=== PATIENT | female | born 1955 | race Caucasian/White ===

== ENCOUNTER 2022-02-22 14:49 | Inpatient (IN) | payer MEDICARE, OTHER ==
[~2022-02-22] VITALS: Ht 170.2 cm; Wt 83.1 kg
[2022-02-22] MEDS ORDERED: Doxycycline IV 100 MG in SODIUM CHLORIDE 0.9% 100 ML IV STA (15:07)
[2022-02-22 15:27] LABS: BASOPHILS # (AUTO) 0.1 (0.0-0.1); BASOPHILS % 0.9 % (0.0-1.0); EOSINOPHILS # (AUTO) 0.3 (0.0-0.4); EOSINOPHILS % 3.1 % (0.0-6.0); HEMATOCRIT 42.1 % (34.2-44.1); HEMOGLOBIN 11.4 g/dL (12.0-16.0); LYMPHOCYTES % 21.6 % (18.0-39.1); MEAN CORPUSCULAR HEMOGLOBIN 22.2 pg (28-32); MEAN CORPUSCULAR HGB CONC 27.1 g/dL (31-35); MEAN CORPUSCULAR VOLUME 82.1 fL (81-99); MONOCYTES # (AUTO) 1.1 (0.2-0.8); MONOCYTES % 11.7 % (4.4-11.3); NEUTROPHILS # (AUTO) 5.8 (2.1-6.9); NEUTROPHILS % 62.4 % (38.7-80.0); PLATELET COUNT 306 x10e3/uL (140-360); RED BLOOD COUNT 5.13 x10e6/uL (3.6-5.1); RED CELL DISTRIBUTION WIDTH 19.9 % (11.7-14.4)
[2022-02-22 15:41] LABS: ALBUMIN/GLOBULIN RATIO 0.6 (0.8-2.0); ANION GAP 16.7 mmol/L (8-16); CALCIUM 8.8 mg/dL (8.4-10.2); CREATININE, SERUM 1.53 mg/dL (0.57-1.11); POTASSIUM 5.7 mmol/L (3.5-5.1)
[2022-02-22] MEDS ORDERED: ALBUTEROL SULF 0.083% NEB SOLN 3 ML NEB NEB STA (16:28)
[2022-02-22] MEDS ORDERED: SODIUM BICARBONATE 8.4% INJ 50 ML SYR IV STA (16:28)
[2022-02-22] MEDS ORDERED: DEXTROSE 50% SYRINGE 50 ML IV STA (16:28)
[2022-02-22] MEDS ORDERED: CALCIUM GLUCONATE 10% INJ 13.95 MEQ in SODIUM CHLORIDE 0.9% 100 ML IV ONE (16:30)
[2022-02-22] MEDS ORDERED: SOD POLYSTYRENE SULFONATE SUSP 15 GM/60 ML BTL PO ONE (16:30)
[2022-02-22] MEDS ORDERED: INSULIN REGULAR, HUMAN 100 UNIT/1 ML IV ONE (16:30)
[2022-02-22] MEDS ORDERED: FUROSEMIDE INJ 10 MG/ML 4 ML VIAL IV ONE (17:00)
[2022-02-22 17:13] LABS: ANISOCYTOSIS SLIGHT; HYPOCHROMASIA MODERATE
[2022-02-22 17:14] LABS: PLATELET ESTIMATE ADEQUATE; PLATELET MORPHOLOGY COMMENT NORMAL
[2022-02-22 18:34] VITALS: BP 140/89
[2022-02-22 20:00] VITALS: BP 105/69
[2022-02-22 21:00] VITALS: BP 105/69
[2022-02-23] VITALS (8 sets, daily range): BP systolic 98–140; BP diastolic 54–90
[2022-02-23] MEDS ORDERED: DEXLANSOPRAZOLE60 MG PO (00:51)
[2022-02-23] MEDS ORDERED: METOPROLOL SUCC25 MG PO (00:51)
[2022-02-23] MEDS ORDERED: LISINOPRIL5 MG PO (00:51)
[2022-02-23] MEDS ORDERED: TIZANIDINE HCL4 MG PO (00:51)
[2022-02-23] MEDS ORDERED: ALBUTEROL2.5 MG/3 M NEB (00:51)
[2022-02-23] MEDS ORDERED: BUMETANIDE0.5 MG (00:51)
[2022-02-23 06:59] LABS: BASOPHILS # (AUTO) 0.1 (0.0-0.1); BASOPHILS % 0.7 % (0.0-1.0); EOSINOPHILS # (AUTO) 0.2 (0.0-0.4); HEMATOCRIT 40.7 % (34.2-44.1); HEMOGLOBIN 10.9 g/dL (12.0-16.0); LYMPHOCYTES # (AUTO) 1.4 (1.0-3.2); LYMPHOCYTES % 16.2 % (18.0-39.1); MEAN CORPUSCULAR HEMOGLOBIN 22.1 pg (28-32); MEAN CORPUSCULAR HGB CONC 26.8 g/dL (31-35); MEAN CORPUSCULAR VOLUME 82.4 fL (81-99); MONOCYTES % 11.8 % (4.4-11.3); NEUTROPHILS % 68.5 % (38.7-80.0); PLATELET COUNT 263 x10e3/uL (140-360); RED BLOOD COUNT 4.94 x10e6/uL (3.6-5.1); RED CELL DISTRIBUTION WIDTH 19.1 % (11.7-14.4)
[2022-02-23 07:14] LABS: ANION GAP 15.2 mmol/L (8-16); CALCIUM 8.4 mg/dL (8.4-10.2); CREATININE, SERUM 1.27 mg/dL (0.57-1.11); POTASSIUM 5.2 mmol/L (3.5-5.1)
[2022-02-23] MEDS: METHADONE HCL 10 MG PO SCH ×2 (07:22→09:00)
[2022-02-23] MEDS ORDERED: BENZONATATE 100 MG CAP PO PRN (10:45)
[2022-02-23] MEDS ORDERED: ACETAMINOPHEN 325 MG TAB PO PRN (10:45)
[2022-02-23] MEDS ORDERED: HYDROCODONE/APAP 7.5MG-325MG 1 EA TAB PO PRN (10:45)
[2022-02-23] MEDS ORDERED: ALBUTEROL/IPRATROPIUM 3 ML NEB NEB PRN (10:45)
[2022-02-23] MEDS ORDERED: ONDANSETRON HCL INJ 2MG/ML 2ML 2 MG/ML VIAL IV PRN (10:45)
[2022-02-23] MEDS: ALBUTEROL/IPRATROPIUM 3 ML NEB NEB SCH ×3 (10:45→19:00)
[2022-02-23] MEDS: METHYLPREDNISOLONE SOD SUCC 40 MG/ML VIAL 1ML IV SCH ×2 (11:51→16:51)
[2022-02-23] MEDS: ENOXAPARIN SOD INJ 40 MG/0.4 ML SYR SC SCH (16:51)
[2022-02-23] MEDS: GUAIFENESIN 600MG/DEXTROMETHORPHAN 30MG TABSR PO SCH (16:51)
[2022-02-23] MEDS: DOXYCYCLINE HYCLATE TABLET 100 MG TAB PO SCH (16:51)
[2022-02-23] MEDS: METOPROLOL SUCCINATE 25 MG TAB XL PO SCH (22:40)
[2022-02-24] VITALS (9 sets, daily range): BP systolic 93–139; BP diastolic 57–117
[2022-02-24] MEDS: ALBUTEROL/IPRATROPIUM 3 ML NEB NEB SCH ×9 (00:35→23:10)
[2022-02-24] MEDS: METHYLPREDNISOLONE SOD SUCC 40 MG/ML VIAL 1ML IV SCH ×3 (00:41→17:32)
[2022-02-24] MEDS ORDERED: ONDANSETRON HCL 4 MG ORAL DISINTEGRATING TAB SL PRN (07:15)
[2022-02-24] MEDS: METHADONE HCL 10 MG PO SCH (07:50)
[2022-02-24] MEDS: DOXYCYCLINE HYCLATE TABLET 100 MG TAB PO SCH ×2 (07:50→16:30)
[2022-02-24] MEDS: GUAIFENESIN 600MG/DEXTROMETHORPHAN 30MG TABSR PO SCH ×2 (07:51→16:30)
[2022-02-24 08:46] LABS: BASOPHILS % 0.1 % (0.0-1.0); HEMATOCRIT 40.9 % (34.2-44.1); HEMOGLOBIN 10.6 g/dL (12.0-16.0); LYMPHOCYTES # (AUTO) 0.6 (1.0-3.2); LYMPHOCYTES % 8.5 % (18.0-39.1); MEAN CORPUSCULAR HEMOGLOBIN 21.9 pg (28-32); MEAN CORPUSCULAR HGB CONC 25.9 g/dL (31-35); MEAN CORPUSCULAR VOLUME 84.7 fL (81-99); MONOCYTES # (AUTO) 0.1 (0.2-0.8); NEUTROPHILS # (AUTO) 6.6 (2.1-6.9); NEUTROPHILS % 90.1 % (38.7-80.0); PLATELET COUNT 220 x10e3/uL (140-360); RED BLOOD COUNT 4.83 x10e6/uL (3.6-5.1); RED CELL DISTRIBUTION WIDTH 18.9 % (11.7-14.4)
[2022-02-24 09:02] LABS: ANION GAP 12.7 mmol/L (8-16); CALCIUM 8.8 mg/dL (8.4-10.2); CREATININE, SERUM 1.04 mg/dL (0.57-1.11); POTASSIUM 4.7 mmol/L (3.5-5.1)
[2022-02-24 10:38] LABS: LYMPHOCYTES % (MANUAL) 5 % (19-48); MONOCYTES % (MANUAL) 2 % (3.4-9.0); NEUTROPHILS % (MANUAL) 93 % (40-74)
[2022-02-24 10:39] LABS: HYPOCHROMASIA SLIGHT; PLATELET ESTIMATE ADEQUATE; PLATELET MORPHOLOGY COMMENT NORMAL
[2022-02-24 10:58] LABS: % IRON SATURATION 3 % (15-50); IRON 15 ug/dL (50-170); TOTAL IRON BINDING CAPACITY 462 ug/dL (261-478); TRANSFERRIN 330 mg/dL (180-382)
[2022-02-24] MEDS ORDERED: SODIUM CHLORIDE 0.9% 250ML 250 ML ONE (12:12)
[2022-02-24] MEDS: ENOXAPARIN SOD INJ 40 MG/0.4 ML SYR SC SCH (16:30)
[2022-02-24] MEDS: NEOMYCIN/POLYMYXIN/BACITRACIN 15 GM TUBE TOP SCH (19:00)
[2022-02-24] MEDS: METOPROLOL SUCCINATE 25 MG TAB XL PO SCH (20:51)
[2022-02-25] VITALS (10 sets, daily range): BP systolic 104–157; BP diastolic 38–98
[2022-02-25] MEDS: ALBUTEROL/IPRATROPIUM 3 ML NEB NEB SCH ×7 (03:00→23:00)
[2022-02-25 05:45] LABS: CALCIUM 9.2 mg/dL (8.4-10.2); CREATININE, SERUM 0.99 mg/dL (0.57-1.11)
[2022-02-25] MEDS: GUAIFENESIN 600MG/DEXTROMETHORPHAN 30MG TABSR PO SCH ×2 (08:24→16:30)
[2022-02-25] MEDS: METHYLPREDNISOLONE SOD SUCC 40 MG/ML VIAL 1ML IV SCH ×2 (08:24→16:31)
[2022-02-25] MEDS: DOXYCYCLINE HYCLATE TABLET 100 MG TAB PO SCH ×2 (08:24→16:30)
[2022-02-25] MEDS: METHADONE HCL 10 MG PO SCH (08:25)
[2022-02-25] MEDS: TIOTROPIUM 18 MCG INH POWDER INH SCH (10:44)
[2022-02-25] MEDS: NEOMYCIN/POLYMYXIN/BACITRACIN 15 GM TUBE TOP SCH ×2 (14:26→16:31)
[2022-02-25] MEDS: IRON SUCROSE 100 MG in SODIUM CHLORIDE 0.9% 100 ML IV SCH (15:28)
[2022-02-25] MEDS: CLOTRIMAZOLE 1% CR 15 GM TOP SCH (16:31)
[2022-02-25] MEDS: ENOXAPARIN SOD INJ 40 MG/0.4 ML SYR SC SCH (16:31)
[2022-02-25] MEDS: METOPROLOL SUCCINATE 25 MG TAB XL PO SCH (21:15)
[2022-02-26] VITALS (10 sets, daily range): BP systolic 99–128; BP diastolic 44–93
[2022-02-26] MEDS: ALBUTEROL/IPRATROPIUM 3 ML NEB NEB SCH ×6 (03:00→23:05)
[2022-02-26] MEDS: TIOTROPIUM 18 MCG INH POWDER INH SCH (08:00)
[2022-02-26] MEDS: METHYLPREDNISOLONE SOD SUCC 40 MG/ML VIAL 1ML IV SCH (09:16)
[2022-02-26] MEDS: METHADONE HCL 10 MG PO SCH (09:17)
[2022-02-26] MEDS: CLOTRIMAZOLE 1% CR 15 GM TOP SCH ×2 (09:17→17:47)
[2022-02-26] MEDS: DOXYCYCLINE HYCLATE TABLET 100 MG TAB PO SCH ×2 (09:17→17:47)
[2022-02-26] MEDS: NEOMYCIN/POLYMYXIN/BACITRACIN 15 GM TUBE TOP SCH ×2 (09:17→17:47)
[2022-02-26] MEDS: GUAIFENESIN 600MG/DEXTROMETHORPHAN 30MG TABSR PO SCH ×2 (09:17→17:47)
[2022-02-26] MEDS: IRON SUCROSE 100 MG in SODIUM CHLORIDE 0.9% 100 ML IV SCH (13:34)
[2022-02-26] MEDS: ENOXAPARIN SOD INJ 40 MG/0.4 ML SYR SC SCH (17:47)
[2022-02-26] MEDS: METOPROLOL SUCCINATE 25 MG TAB XL PO SCH (20:21)
[2022-02-26 22:37] LABS: ABG HCO3 40 mmol/L (22-26); ABG PCO2 113 mmHg (35-45); ABG PH 7.16 (7.35-7.45); ABG PO2 57 mmHg (80-105); ABG TCO2 44
[2022-02-27] VITALS (25 sets, daily range): BP systolic 97–131; BP diastolic 51–93
[2022-02-27] MEDS: ALBUTEROL/IPRATROPIUM 3 ML NEB NEB SCH ×6 (01:30→19:10)
[2022-02-27] MEDS: TIOTROPIUM 18 MCG INH POWDER INH SCH (06:00)
[2022-02-27 06:31] LABS: BASOPHILS % 0.1 % (0.0-1.0); HEMATOCRIT 43.1 % (34.2-44.1); HEMOGLOBIN 10.8 g/dL (12.0-16.0); LYMPHOCYTES # (AUTO) 1.8 (1.0-3.2); LYMPHOCYTES % 19.4 % (18.0-39.1); MEAN CORPUSCULAR HGB CONC 25.1 g/dL (31-35); MONOCYTES % 10.9 % (4.4-11.3); NEUTROPHILS # (AUTO) 6.3 (2.1-6.9); NEUTROPHILS % 69.2 % (38.7-80.0); PLATELET COUNT 192 x10e3/uL (140-360)
[2022-02-27 06:49] LABS: CALCIUM 9.6 mg/dL (8.4-10.2); CREATININE, SERUM 0.9 mg/dL (0.57-1.11)
[2022-02-27 07:50] LABS: ABG HCO3 41 mmol/L (22-26); ABG PCO2 109 mmHg (35-45); ABG PH 7.18 (7.35-7.45); ABG PO2 89 mmHg (80-105); ABG TCO2 44
[2022-02-27] MEDS ORDERED: PREDNISONE 20 MG TAB PO SCH (09:00)
[2022-02-27] MEDS: GUAIFENESIN 600MG/DEXTROMETHORPHAN 30MG TABSR PO SCH ×2 (09:08→17:00)
[2022-02-27] MEDS: DOXYCYCLINE HYCLATE TABLET 100 MG TAB PO SCH (09:08)
[2022-02-27] MEDS: FUROSEMIDE INJ 10 MG/ML 4 ML VIAL IV SCH ×3 (09:09→21:20)
[2022-02-27] MEDS: METHADONE HCL 10 MG PO SCH (09:10)
[2022-02-27] MEDS: CLOTRIMAZOLE 1% CR 15 GM TOP SCH ×2 (09:11→17:33)
[2022-02-27] MEDS: NEOMYCIN/POLYMYXIN/BACITRACIN 15 GM TUBE TOP SCH ×2 (09:11→17:33)
[2022-02-27] MEDS: METHYLPREDNISOLONE SOD SUCC 40 MG/ML VIAL 1ML IV SCH ×2 (12:28→21:20)
[2022-02-27] MEDS: IRON SUCROSE 100 MG in SODIUM CHLORIDE 0.9% 100 ML IV SCH (14:05)
[2022-02-27] MEDS: ENOXAPARIN SOD INJ 40 MG/0.4 ML SYR SC SCH ×2 (16:33→17:00)
[2022-02-27 16:53] LABS: ABG HCO3 44 mmol/L (22-26); ABG PCO2 90 mmHg (35-45); ABG PO2 61 mmHg (80-105); ABG TCO2 46
[2022-02-27] MEDS: METOPROLOL SUCCINATE 25 MG TAB XL PO SCH (21:00)
[2022-02-28] VITALS (28 sets, daily range): BP systolic 89–159; BP diastolic 43–90
[2022-02-28] MEDS: ALBUTEROL/IPRATROPIUM 3 ML NEB NEB SCH ×6 (03:30→22:55)
[2022-02-28] MEDS: TIOTROPIUM 18 MCG INH POWDER INH SCH (06:00)
[2022-02-28] MEDS: FUROSEMIDE INJ 10 MG/ML 4 ML VIAL IV SCH ×3 (06:21→22:24)
[2022-02-28] MEDS: GUAIFENESIN 600MG/DEXTROMETHORPHAN 30MG TABSR PO SCH ×2 (08:43→16:38)
[2022-02-28] MEDS: METHYLPREDNISOLONE SOD SUCC 40 MG/ML VIAL 1ML IV SCH ×2 (08:43→22:24)
[2022-02-28] MEDS: NEOMYCIN/POLYMYXIN/BACITRACIN 15 GM TUBE TOP SCH ×2 (08:44→16:40)
[2022-02-28] MEDS: METHADONE HCL 10 MG PO SCH (08:44)
[2022-02-28] MEDS: CLOTRIMAZOLE 1% CR 15 GM TOP SCH ×2 (09:39→16:40)
[2022-02-28] MEDS: ENOXAPARIN SOD INJ 40 MG/0.4 ML SYR SC SCH (16:39)
[2022-02-28] MEDS: METOPROLOL SUCCINATE 25 MG TAB XL PO SCH (21:00)
[2022-03-01] VITALS (21 sets, daily range): BP systolic 89–123; BP diastolic 48–78
[2022-03-01] MEDS: ALBUTEROL/IPRATROPIUM 3 ML NEB NEB SCH ×6 (02:55→22:55)
[2022-03-01] MEDS: TIOTROPIUM 18 MCG INH POWDER INH SCH (06:00)
[2022-03-01 06:26] LABS: HEMATOCRIT 38.4 % (34.2-44.1); HEMOGLOBIN 10.3 g/dL (12.0-16.0); LYMPHOCYTES # (AUTO) 0.7 (1.0-3.2); LYMPHOCYTES % 8.2 % (18.0-39.1); MEAN CORPUSCULAR HEMOGLOBIN 22.2 pg (28-32); MEAN CORPUSCULAR HGB CONC 26.8 g/dL (31-35); MEAN CORPUSCULAR VOLUME 82.8 fL (81-99); MONOCYTES # (AUTO) 0.4 (0.2-0.8); MONOCYTES % 4.5 % (4.4-11.3); NEUTROPHILS # (AUTO) 7.9 (2.1-6.9); NEUTROPHILS % 87.1 % (38.7-80.0); PLATELET COUNT 181 x10e3/uL (140-360); RED BLOOD COUNT 4.64 x10e6/uL (3.6-5.1); RED CELL DISTRIBUTION WIDTH 18.9 % (11.7-14.4)
[2022-03-01] MEDS: FUROSEMIDE INJ 10 MG/ML 4 ML VIAL IV SCH ×3 (06:30→21:38)
[2022-03-01 08:11] LABS: CALCIUM 9.3 mg/dL (8.4-10.2); CREATININE, SERUM 0.89 mg/dL (0.57-1.11); POTASSIUM 3.2 mmol/L (3.5-5.1)
[2022-03-01] MEDS: METHYLPREDNISOLONE SOD SUCC 40 MG/ML VIAL 1ML IV SCH ×2 (08:24→21:37)
[2022-03-01] MEDS: METHADONE HCL 10 MG TAB PO SCH (08:24)
[2022-03-01] MEDS: GUAIFENESIN 600MG/DEXTROMETHORPHAN 30MG TABSR PO SCH ×2 (08:24→17:03)
[2022-03-01] MEDS: NEOMYCIN/POLYMYXIN/BACITRACIN 15 GM TUBE TOP SCH ×2 (08:24→17:03)
[2022-03-01] MEDS: CLOTRIMAZOLE 1% CR 15 GM TOP SCH ×2 (08:24→17:03)
[2022-03-01 08:51] LABS: ANION GAP 18.2 mmol/L (8-16)
[2022-03-01] MEDS: ENOXAPARIN SOD INJ 40 MG/0.4 ML SYR SC SCH (17:03)
[2022-03-01] MEDS: METOPROLOL SUCCINATE 25 MG TAB XL PO SCH (22:08)
[2022-03-02] VITALS (14 sets, daily range): BP systolic 100–132; BP diastolic 46–78
[2022-03-02] MEDS: ALBUTEROL/IPRATROPIUM 3 ML NEB NEB SCH ×6 (03:50→23:05)
[2022-03-02] MEDS: TIOTROPIUM 18 MCG INH POWDER INH SCH (06:00)
[2022-03-02] MEDS: FUROSEMIDE INJ 10 MG/ML 4 ML VIAL IV SCH ×3 (06:01→22:27)
[2022-03-02 07:56] LABS: BASOPHILS % 0.1 % (0.0-1.0); EOSINOPHILS % 0.2 % (0.0-6.0); HEMATOCRIT 43.6 % (34.2-44.1); HEMOGLOBIN 11.6 g/dL (12.0-16.0); LYMPHOCYTES # (AUTO) 0.9 (1.0-3.2); LYMPHOCYTES % 8.5 % (18.0-39.1); MEAN CORPUSCULAR HEMOGLOBIN 21.9 pg (28-32); MEAN CORPUSCULAR HGB CONC 26.6 g/dL (31-35); MEAN CORPUSCULAR VOLUME 82.3 fL (81-99); MONOCYTES # (AUTO) 0.6 (0.2-0.8); MONOCYTES % 5.7 % (4.4-11.3); NEUTROPHILS # (AUTO) 9.3 (2.1-6.9); PLATELET COUNT 169 x10e3/uL (140-360); RED CELL DISTRIBUTION WIDTH 19.6 % (11.7-14.4)
[2022-03-02 08:12] LABS: CREATININE, SERUM 0.91 mg/dL (0.57-1.11); POTASSIUM 3.2 mmol/L (3.5-5.1)
[2022-03-02] MEDS: CLOTRIMAZOLE 1% CR 15 GM TOP SCH ×2 (08:22→16:46)
[2022-03-02] MEDS: NEOMYCIN/POLYMYXIN/BACITRACIN 15 GM TUBE TOP SCH ×2 (08:22→16:46)
[2022-03-02] MEDS: GUAIFENESIN 600MG/DEXTROMETHORPHAN 30MG TABSR PO SCH ×2 (08:22→16:46)
[2022-03-02] MEDS: METHYLPREDNISOLONE SOD SUCC 40 MG/ML VIAL 1ML IV SCH ×2 (08:22→21:22)
[2022-03-02] MEDS: METHADONE HCL 10 MG TAB PO SCH (08:22)
[2022-03-02 08:26] LABS: ANION GAP 21.2 mmol/L (8-16)
[2022-03-02] MEDS ORDERED: METHYLPREDNISOLONE SOD SUCC 40 MG/ML VIAL 1ML IV SCH (11:30)
[2022-03-02] MEDS ORDERED: METHADONE HCL 10 MG TAB PO SCH (11:30)
[2022-03-02] MEDS: ENOXAPARIN SOD INJ 40 MG/0.4 ML SYR SC SCH (16:46)
[2022-03-02] MEDS: METOPROLOL SUCCINATE 25 MG TAB XL PO SCH (21:23)
[2022-03-03] MEDS: ALBUTEROL/IPRATROPIUM 3 ML NEB NEB SCH ×6 (02:25→23:10)
[2022-03-03 03:00] VITALS: BP 119/69
[2022-03-03 05:20] LABS: BASOPHILS % 0.1 % (0.0-1.0); HEMATOCRIT 44.3 % (34.2-44.1); HEMOGLOBIN 11.7 g/dL (12.0-16.0); LYMPHOCYTES % 7.5 % (18.0-39.1); MEAN CORPUSCULAR HGB CONC 26.4 g/dL (31-35); MEAN CORPUSCULAR VOLUME 83.1 fL (81-99); MONOCYTES # (AUTO) 0.8 (0.2-0.8); NEUTROPHILS # (AUTO) 11.7 (2.1-6.9); NEUTROPHILS % 86.2 % (38.7-80.0); PLATELET COUNT 157 x10e3/uL (140-360); RED BLOOD COUNT 5.33 x10e6/uL (3.6-5.1); RED CELL DISTRIBUTION WIDTH 20.1 % (11.7-14.4)
[2022-03-03 05:46] LABS: CALCIUM 8.9 mg/dL (8.4-10.2); CREATININE, SERUM 0.97 mg/dL (0.57-1.11)
[2022-03-03] MEDS: FUROSEMIDE INJ 10 MG/ML 4 ML VIAL IV SCH ×2 (05:58→07:28)
[2022-03-03] MEDS: TIOTROPIUM 18 MCG INH POWDER INH SCH (06:00)
[2022-03-03] MEDS ORDERED: POTASSIUM CHLORIDE 20 MEQ TAB CR PO STA ×2 (06:30→07:23)
[2022-03-03 09:00] VITALS: BP 119/69
[2022-03-03] MEDS: METHYLPREDNISOLONE SOD SUCC 40 MG/ML VIAL 1ML IV SCH ×2 (09:58→21:50)
[2022-03-03] MEDS: GUAIFENESIN 600MG/DEXTROMETHORPHAN 30MG TABSR PO SCH ×2 (10:00→17:00)
[2022-03-03] MEDS: METHADONE HCL 10 MG TAB PO SCH (10:00)
[2022-03-03] MEDS: CLOTRIMAZOLE 1% CR 15 GM TOP SCH ×2 (10:53→17:00)
[2022-03-03] MEDS: NEOMYCIN/POLYMYXIN/BACITRACIN 15 GM TUBE TOP SCH (10:54)
[2022-03-03] MEDS: ACETAZOLAMIDE 250 MG TAB PO SCH ×2 (12:00→17:00)
[2022-03-03 16:09] VITALS: BP 92/51
[2022-03-03] MEDS: ENOXAPARIN SOD INJ 40 MG/0.4 ML SYR SC SCH (17:00)
[2022-03-03 20:00] VITALS: BP 127/73
[2022-03-03 21:30] VITALS: BP 127/73
[2022-03-03] MEDS: METOPROLOL SUCCINATE 25 MG TAB XL PO SCH (21:49)
[2022-03-04] VITALS (8 sets, daily range): BP systolic 101–150; BP diastolic 61–95
[2022-03-04] MEDS: ALBUTEROL/IPRATROPIUM 3 ML NEB NEB SCH ×6 (03:15→23:00)
[2022-03-04] MEDS: TIOTROPIUM 18 MCG INH POWDER INH SCH (06:00)
[2022-03-04 06:08] LABS: ANION GAP 18.1 mmol/L (8-16); CALCIUM 9.1 mg/dL (8.4-10.2); CREATININE, SERUM 1.24 mg/dL (0.57-1.11); POTASSIUM 3.1 mmol/L (3.5-5.1)
[2022-03-04] MEDS: FUROSEMIDE INJ 10 MG/ML 4 ML VIAL IV SCH (06:18)
[2022-03-04] MEDS: GUAIFENESIN 600MG/DEXTROMETHORPHAN 30MG TABSR PO SCH ×2 (08:08→17:20)
[2022-03-04] MEDS: METHADONE HCL 10 MG TAB PO SCH (08:08)
[2022-03-04] MEDS: ACETAZOLAMIDE 250 MG TAB PO SCH ×2 (08:08→12:43)
[2022-03-04] MEDS: METHYLPREDNISOLONE SOD SUCC 40 MG/ML VIAL 1ML IV SCH (08:09)
[2022-03-04] MEDS ORDERED: MAGNESIUM SULFATE 2GM/50ML IV ONE (09:00)
[2022-03-04] MEDS ORDERED: POTASSIUM CHLORIDE 10MEQ EA PO ONE (09:30)
[2022-03-04] MEDS ORDERED: MAGNESIUM SULFATE 2GM/50ML 50 ML IV ONE (09:30)
[2022-03-04] MEDS: CLOTRIMAZOLE 1% CR 15 GM TOP SCH (11:17)
[2022-03-04] MEDS ORDERED: POTASSIUM PHOSPHATE 20 MM in SODIUM CHLORIDE 0.9% 250ML 250 ML IV ONE (12:00)
[2022-03-04] MEDS ORDERED: SODIUM CHLORIDE 0.9% 250ML 250 ML ONE ×2 (12:45)
[2022-03-04] MEDS: ENOXAPARIN SOD INJ 40 MG/0.4 ML SYR SC SCH (17:20)
[2022-03-04] MEDS: METOPROLOL SUCCINATE 25 MG TAB XL PO SCH (21:11)
[2022-03-05] VITALS (8 sets, daily range): BP systolic 102–140; BP diastolic 51–81
[2022-03-05] MEDS: ALBUTEROL/IPRATROPIUM 3 ML NEB NEB SCH ×6 (02:00→23:30)
[2022-03-05] MEDS: TIOTROPIUM 18 MCG INH POWDER INH SCH (06:00)
[2022-03-05 06:34] LABS: BASOPHILS % 0.1 % (0.0-1.0); EOSINOPHILS # (AUTO) 0.1 (0.0-0.4); EOSINOPHILS % 0.7 % (0.0-6.0); HEMATOCRIT 44.5 % (34.2-44.1); HEMOGLOBIN 11.9 g/dL (12.0-16.0); LYMPHOCYTES # (AUTO) 2.7 (1.0-3.2); LYMPHOCYTES % 15.3 % (18.0-39.1); MEAN CORPUSCULAR HEMOGLOBIN 22.2 pg (28-32); MEAN CORPUSCULAR HGB CONC 26.7 g/dL (31-35); MONOCYTES # (AUTO) 1.6 (0.2-0.8); MONOCYTES % 8.8 % (4.4-11.3); NEUTROPHILS # (AUTO) 13.4 (2.1-6.9); NEUTROPHILS % 74.7 % (38.7-80.0); PLATELET COUNT 152 x10e3/uL (140-360); RED BLOOD COUNT 5.36 x10e6/uL (3.6-5.1); RED CELL DISTRIBUTION WIDTH 20.3 % (11.7-14.4)
[2022-03-05 06:41] LABS: CALCIUM 8.8 mg/dL (8.4-10.2); CREATININE, SERUM 1.35 mg/dL (0.57-1.11); PHOSPHORUS 3.4 MG/DL (2.3-4.7)
[2022-03-05] MEDS: FUROSEMIDE INJ 10 MG/ML 4 ML VIAL IV SCH (06:43)
[2022-03-05] MEDS ORDERED: METHYLPREDNISOLONE SOD SUCC 40 MG/ML VIAL 1ML IV SCH (07:30)
[2022-03-05 07:52] LABS: PLATELET ESTIMATE ADEQUATE
[2022-03-05 07:53] LABS: ANISOCYTOSIS MODERATE; HYPOCHROMASIA MODERATE; PLATELET MORPHOLOGY COMMENT NORMAL; RBC MORPHOLOGY COMMENT ABNORMAL
[2022-03-05] MEDS: ACETAZOLAMIDE 250 MG TAB PO SCH (08:23)
[2022-03-05] MEDS: METHADONE HCL 10 MG TAB PO SCH (08:25)
[2022-03-05] MEDS: GUAIFENESIN 600MG/DEXTROMETHORPHAN 30MG TABSR PO SCH ×2 (08:26→16:38)
[2022-03-05] MEDS ORDERED: POTASSIUM CHLORIDE 10MEQ EA PO ONE (09:45)
[2022-03-05] MEDS: VANCOMYCIN HCL 125 MG CAPSULE PO SCH ×3 (10:16→22:01)
[2022-03-05] MEDS: FUROSEMIDE 40 MG TAB PO SCH (10:18)
[2022-03-05] MEDS: POTASSIUM CHLORIDE 10MEQ EA PO SCH (10:20)
[2022-03-05] MEDS ORDERED: ENOXAPARIN SOD INJ 40 MG/0.4 ML SYR SC SCH (17:00)
[2022-03-05] MEDS: METOPROLOL SUCCINATE 25 MG TAB XL PO SCH (22:01)
[2022-03-06] VITALS: BP 117/76
[2022-03-06] MEDS: ALBUTEROL/IPRATROPIUM 3 ML NEB NEB SCH ×3 (04:00→10:49)
[2022-03-06] MEDS: VANCOMYCIN HCL 125 MG CAPSULE PO SCH ×2 (05:33→13:31)
[2022-03-06 06:22] LABS: BASOPHILS % 0.1 % (0.0-1.0); EOSINOPHILS # (AUTO) 0.2 (0.0-0.4); HEMATOCRIT 41.4 % (34.2-44.1); HEMOGLOBIN 11.3 g/dL (12.0-16.0); LYMPHOCYTES # (AUTO) 2.4 (1.0-3.2); LYMPHOCYTES % 15.3 % (18.0-39.1); MEAN CORPUSCULAR HEMOGLOBIN 22.5 pg (28-32); MEAN CORPUSCULAR HGB CONC 27.3 g/dL (31-35); MEAN CORPUSCULAR VOLUME 82.5 fL (81-99); MONOCYTES # (AUTO) 1.2 (0.2-0.8); MONOCYTES % 7.7 % (4.4-11.3); NEUTROPHILS # (AUTO) 11.9 (2.1-6.9); NEUTROPHILS % 75.3 % (38.7-80.0); PLATELET COUNT 153 x10e3/uL (140-360); RED BLOOD COUNT 5.02 x10e6/uL (3.6-5.1); RED CELL DISTRIBUTION WIDTH 20.1 % (11.7-14.4)
[2022-03-06 07:04] LABS: ANION GAP 15.1 mmol/L (8-16); CREATININE, SERUM 1.08 mg/dL (0.57-1.11); POTASSIUM 3.1 mmol/L (3.5-5.1)
[2022-03-06 08:26] VITALS: BP 102/77
[2022-03-06] MEDS: FUROSEMIDE 40 MG TAB PO SCH (08:43)
[2022-03-06] MEDS: POTASSIUM CHLORIDE 10MEQ EA PO SCH (08:43)
[2022-03-06] MEDS: ACETAZOLAMIDE 250 MG TAB PO SCH (08:43)
[2022-03-06] MEDS: METHADONE HCL 10 MG TAB PO SCH (08:45)
[2022-03-06] MEDS: GUAIFENESIN 600MG/DEXTROMETHORPHAN 30MG TABSR PO SCH (08:45)
[2022-03-06] MEDS: TIOTROPIUM 18 MCG INH POWDER INH SCH (10:49)
[2022-03-06 12:17] VITALS: BP 107/65
== END 2022-03-06 13:38 | disposition home or self-care (01) | DRG 602 ==
LOC: ER 14:52 → ERHOLD 16:37 → MED/SURG2 18:17 → OBSVTOIN 02-23 10:44 → ICU 02-26 22:14 → MED/SURG2 03-03 12:00
PROVIDERS: ADMIT Internal Medicine; ATTEND Internal Medicine
PROC: 5A0935A Assistance with Respiratory Ventilation, Less than 24 Consecutive Hours, High Flow/Velocity Cannula (ICD-10-PCS; principal; 2022-02-26)
PROC: 5A09457 Assistance with Respiratory Ventilation, 24-96 Consecutive Hours, Continuous Positive Airway Pressure (ICD-10-PCS; 2022-02-26)
DX: L03.116 Cellulitis of left lower limb (principal); I50.33 Acute on chronic diastolic (congestive) heart failure; J96.21 Acute and chronic respiratory failure with hypoxia; J96.22 Acute and chronic respiratory failure with hypercapnia; I83.218 Varicose veins of right lower extremity with both ulcer of other part of lower extremity and inflammation; I83.228 Varicose veins of left lower extremity with both ulcer of other part of lower extremity and inflammation; L97.811 Non-pressure chronic ulcer of other part of right lower leg limited to breakdown of skin; L97.829 Non-pressure chronic ulcer of other part of left lower leg with unspecified severity; J44.1 Chronic obstructive pulmonary disease with (acute) exacerbation; L03.115 Cellulitis of right lower limb; E66.01 Morbid (severe) obesity due to excess calories; I11.0 Hypertensive heart disease with heart failure; G47.33 Obstructive sleep apnea (adult) (pediatric); D63.8 Anemia in other chronic diseases classified elsewhere; G89.4 Chronic pain syndrome; F11.90 Opioid use, unspecified, uncomplicated; I35.0 Nonrheumatic aortic (valve) stenosis; Z68.33 Body mass index [BMI] 33.0-33.9, adult; J98.09 Other diseases of bronchus, not elsewhere classified; I27.22 Pulmonary hypertension due to left heart disease; Z87.891 Personal history of nicotine dependence; Z99.81 Dependence on supplemental oxygen; Z86.19 Personal history of other infectious and parasitic diseases; Z80.1 Family history of malignant neoplasm of trachea, bronchus and lung
CPT/HCPCS: 0223U; 36415; 36569; 36600; 71045; 71046; 71250; 80048; 80053; 82805; 82948; 83540; 83735; 83880; 84100; 84466; 84484; 85025; 87071; 87186; 87205; 93005; 93306; 93925; 93971; 94640; 94645; 94660; 94799; 99251; 99284; G0378; J0610; J1650; J1756; J1817; J1940; J2543; J2920; J3475; J7050; J7512; J7799